=== PATIENT | male | born 1940 | race Caucasian/White ===

== ENCOUNTER 2019-01-19 08:05 | Observation (INO) ==
[~2019-01-19 08:05] MED LIST: CEFAZOLIN 1000MG 1,000 MG/7.5 ML SYR IV SCH; CLINDAMYCIN 600 MG/54 ML BAG IV SCH; LR 15ML/HR IV SCH
[2019-01-19] MEDS ORDERED: BACITRACIN INJ 50,000 UNIT VIAL ONE (10:01)
[2019-01-19] MEDS ORDERED: LIDOCAINE HCL 1% 20 ML VIAL ONE (10:01)
[2019-01-19] MEDS ORDERED: BUPIVACAINE 0.25% 30 ML VIAL ONE (10:01)
--- NOTE | 2019-01-19 10:05 | Pre Anesthesia Assessment ---
Date of Service January 19, 2019 Pre Sedation Assessment Vital Signs Temp Pulse Resp BP Pulse Ox 01/19/19 08:25 36.4 C L 65 18 161/99 H 96 Pre-Sedation Airway Assessment Smoking Status: Never smoker Hx Sleep Apnea: No Short, Thick Neck: No Thyromental Distance: > or= 3.5 Finger Breadths Oral Cavity: + WNL Mallampati Class: IV ASA: ASA3 NPO Status Date of Last Intake of Fluids: 01/19/19 Time of Last Intake of Fluids: 07:30 Date of Last Intake of Solid Food: 01/18/19 Time of Last Intake of Solid Foods: 21:45 Notes The planned sedation has been discussed with the patient. Informed Consent was obtained. I have identified the patient, determined the appropriateness of s edation and have assessed the patient immediately prior to the procedure. All medicine(s) and interventions are by my order.
--- NOTE | 2019-01-19 10:11 | History & Physical Report ---
Date of Service January 19, 2019 Assessment & Plan (1) SSS (sick sinus syndrome): History of Present Illness Chief Complaint: +fatigue and +SINCLAIR Primary Care Provider: Mirella العراقي Allergies Allergy/AdvReac Type Severity Reaction Status Date / Time Penicillins Allergy Anaphylaxis Verified 01/19/19 08:40 Home Medications Home Medications Medication Instructions Recorded Confirmed Type Aspirin Low Dose 81 mg DAILY 01/19/19 01/19/19 History Past Med/Surg History Family History Mother No problems noted. 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
[2019-01-19] MEDS ORDERED: MIDAZOLAM HCL 5 MG/ML 1 ML VIAL ONE (10:21)
[2019-01-19] MEDS ORDERED: fentaNYL citrate 100 MCG/2 ML VIAL ONE ×2 (10:21→10:43)
--- NOTE | 2019-01-19 11:25 | Post Anesthesia Assessment ---
Date of Service January 19, 2019 Post Sedation Assessment Vital Signs Temp Pulse Resp BP Pulse Ox 01/19/19 08:25 36.4 C L 65 18 161/99 H 96 Recovery Score Activity: Moves 4 extremities Respiration: Deep Breath/Cough Circulation: +/-20% PreAnes Value Consciousness: Fully Awake Oxygen Saturation: > 92% On Room Air Discharge Sedation Level of Care: Fast Track Phase II Post Sedation Plan On clinical assessment, the patient appears to have tolerated the sedation without complications. Patient is recovering as anticipated. Patient will continue to be monitored by nursing and may be discharged when sedation discharge criteria are met per below protocol. Upon Completions of procedure and additional 15 minutes continue every 5 minute vital signs and the P.A.R. score; then discharge to a Phase I or Fast Track to Phase II per the following guidelines: * Discharge Patient to appropriate Phase II area if PAR is 8 or greater or return to pre- procedure baseline. The post - procedure orders will be as directed. * If PAR score is less than 8 or not return to pre-procedure baseline then patient will follow Phase I monitoring till PAR is reached for Phase II. The Phase I may be done in procedure room or may call to secure a Phase I area. * If naloxone or flumazenil are used for reversal, hold in Phase I for continued monitoring from when last reversal dose was given for a minimum of 60 minutes or longer pending the nurse and/or physician discretion of patient condition before discharge to Phase II. Please call the Sedation Physician to re-evaluate and complete post-note for discharge to Phase II area. Do NOT discharge from procedure sedation or Phase 1 until post- sedation evaluation note is complete by procedure /sedation MD Sedation Discharge Instructions to be given to the patient at discharge to home.
[2019-01-19] MEDS ORDERED: OXYCODONE/ACETAMINOPHEN 5mg/325mg TAB PO PRN (11:26)
--- NOTE | 2019-01-19 11:26 | Operative Report ---
Post Operative Report Pre & Post Diagnosis sss Operation Date: 01/19/19 10:00 <No data on this case meets the specified criteria> Procedure Operation Date: 01/19/19 10:00 Actual Procedures p Pacer with A/V Leads (Dual) - Elvie Israel DO s Venogram, Unilateral - Elvie Israel DO Surgeon Elvie Israel, Scientific Diver none Estimated Blood Loss 10 Findings Consistent with Post-Op Diagnosis Specimens nones Description of Procedure see official report I attest to the content of the Intraoperative Record and any orders documented therein. Any exceptions are noted below.
--- NOTE | 2019-01-19 11:33 | Discharge Summary ---
Date of Service January 19, 2019 Admission HPI Per Admitting Provider pt with SSS admitted for ppm Admission Exam Per Admitting Provider aaox3, NAD NC/AT, EOMI Supple No JVD Nrl S1/S2, No murmur CTA b/l no w/r/r soft nt/nd no LE edema b/l skin intact no focal deficits Principal Diagnosis SSS s/p dual chamber pacemaker Discharge Exam aaox3, NAD NC/AT, EOMI Supple No JVD Nrl S1/S2, No murmur CTA b/l no w/r/r soft nt/nd no LE edema b/l skin intact no focal deficits left pectoral incision intact, no hematoma mild ecchymosis ENMT Mallampati Class: IV Discharge Data Allergies Allergy/AdvReac Type Severity Reaction Status Date / Time Penicillins Allergy Anaphylaxis Verified 01/19/19 08:40 Procedures Performed Operation Date: 01/19/19 10:00 Actual Procedures p Pacer with A/V Leads (Dual) - Elvie Israel DO s Venogram, Unilateral - Elvie Israel DO Ordered Studies CXR: No PTX, leads in position ECG: AP-VS Pacemaker Interrogation: Normal function Lead testing WNL 01/19/19 07:00 EP Lab Images for PACS ONCE Hospital Course (1) SSS (sick sinus syndrome): s/p dual chamber ppm placement lead placement confirmed functioning appropriately outpatient f/u as scheduled will d/c Total Time Total Time Spent Total Time Spent (In Minutes): 30 Total Time Includes: Discharge Planning, Medication Reconciliation and Other Discharge Plan Discharge Items Patient Disposition: Home - Self-Care Reason For Visit: S/P PACER INSERTION Discharge Diagnosis: sss s/p dual chamber ppm Condition: Good Discharge Goals: Improve function Activity: As commented below Activity Comment: do not lift the left elbow over the left shoulder for 1 month Lifting: No more than 10 pounds Lifting Comment: do not lift more than 10 pounds with the left arm for 2 weeks Bathing: Keep incision dry Bathing Comment: can shower sunday 01/21 let water run over the incision do not scrub it Sexual Activity: After two weeks Driving/Machine Use: Resume 1 day after discharge Non-emergency contact: Primary Care Provider Call non-emergency contact if: you have any medication questions and your symptoms worsen Follow-up/Referrals: Mirella Castaneda [Primary Care Provider] - Diet: Regular Addtl Provider Instructions: device and wound check in [facility] next week if you notice any swelling call Dr. Israel's office immediately Prescriptions: New metoprolol succinate 25 mg Tablet Extended Release 24 Hr 25 mg PO QAM Qty: 30 RF: 0 Continued Aspirin Low Dose 81 mg 81 mg DAILY RF: 0 Stand-Alone Forms: [facility]/Other Patient Handouts: Pacemaker, Implantation Pacemaker Dc Discharge Orders: Discharge Order (Routine); Ordered 01/20/19 Ordered By: Murray Henderson Admission Data Admit Date/Time: 01/19/19 11:02 Attending Provider: Elvie Israel Admit Provider: Elvie Israel Primary Care Provider: Mirella Castaneda Service: Telemetry Other Interventions: Discharge Summary Assessment (RN) Last Done: 01/20/19 10:12 DC Date/Time DO NOT enter until pt leaves facility: 01/20/19 11:06
[2019-01-19] MEDS: METOPROLOL SUCC 25MG EXT REL TAB PO SCH (12:45)
[2019-01-19] MEDS: ACETAMINOPHEN 325 MG TAB PO PRN ×2 (15:52→23:14)
--- NOTE | 2019-01-20 07:26 | XRay Report ---
XR chest 2V routine HISTORY: 78 years-old Male post implant status post placement of a left subclavian pacer COMPARISON: None available TECHNIQUE: PA and lateral views of the chest FINDINGS: Limited lateral view secondary to positioning of the patient's upper extremities. Cardiomediastinal a nd hilar silhouettes are within normal limits. Status post placement of a left subclavian pacer with leads overlying the expected locations of the right atrium and right ventricle. No postprocedural pne umothorax. Mild right hemidiaphragmatic elevation. No large pleural effusion, lobar airspace consolid ation or overt pulmonary edema. Degenerative changes of the shoulders and spine. IMPRESSION: Status post placement of a left subclavian pacer without postprocedural pneumothorax iden tified. The above report was generated using voice recognition software. It may contain grammatical, syntax o r spelling errors. Electronically signed by: Julio Cesar Berry M.D. 01/20/2019 7:25 AM
[2019-01-20] MEDS: METOPROLOL SUCC 25MG EXT REL TAB PO SCH (08:28)
[2019-01-20] MEDS ORDERED: ASPIRIN 81 MG ECTAB PO SCH (09:00)
--- NOTE | 2019-01-20 09:50 | Cardiology Progress Note ---
Date of Service January 20, 2019 Assessment & Plan (1) SSS (sick sinus syndrome): s/p dual chamber ppm placement lead placement confirmed functioning appropriately outpatient f/u as scheduled will d/c Subjective Pt seen and examined, cherie joshua. States that he feels well. Slight soreness at pocket site but controlled. Denies cp, sob, palpitations, lightheadedness or dizziness. tele reviewed: sinus with occasional atrial pacing Review of Systems Review of Systems: All systems reviewed & are unremarkable except as noted in HPI & below Physical Exam Physical Exam: General: Awake, alert and oriented x 3. No acute distress. HEENT: Normocephalic, atraumatic. Pupils equal, round and reactive to light and accommodation. Extraocular muscles are intact. Anicteric sclera. Moist mucous membranes. Neck: No JVD. No bruit. Cardiovascular: Regular. Positive S-4. Normal S-1 and S-2. No S-3. No murmurs or rubs. Pulmonary: Clear to auscultation B/L. No rales, rhonchi or wheezing Abdomen: Bowel sounds x 4, soft. No rebound, guarding or tenderness. No organomegaly. Extremities: No clubbing, cyanosis or edema. +2 pedal pulses bilaterally. Skin: Warm and dry. Results & Data Vital Signs (Past 12 Hours) Vital Signs Temp Pulse Pulse Resp BP Pulse Ox 01/20/19 08:27 36.9 C 60 16 123/63 93 01/20/19 03:08 36.6 C 61 16 114/76 92 01/19/19 23:15 61 01/19/19 23:03 36.8 C 60 16 125/77 97
--- NOTE | 2019-02-02 00:57 | Operative Report ---
DATE OF OPERATION: 01/19/2019 DATE OF PROCEDURE: 01/19/2019 PREOPERATIVE DIAGNOSIS: Sick sinus syndrome. POSTOPERATIVE DIAGNOSIS: Sick sinus syndrome. PROCEDURE: Dual chamber responsive permanent pacemaker under fluoroscopic guidance with a peripheral venogram. SURGEON: Elvie Israel DO. MRI TECH: None. ANESTHESIA: Monitored conscious sedation administered under my supervision by Cynthia Phipps, start time 10:30 and end time 11:22. A total of 5 mg Versed, 125 mcg of fentanyl. INTRAVENOUS FLUIDS: 61 mL. ANTIBIOTICS: Clindamycin 600 mg. IV CONTRAST: 10 mL. URINE OUTPUT: Not applicable. SPECIMENS: None. FINDINGS: See below. DRAINS: None. COMPLICATIONS: None. CONDITION: Stable. BLOOD LOSS: 20 mL. INDICATIONS: This is a 78-year-old gentleman with past medical history for prior tobacco use, PVCs, PAT, PFO, negative nuclear stress test in November of 2018, incomplete right bundle branch block and polycythemia vera. He has been having evidence of sick sinus syndrome, becoming more symptomatic and recommended dual chamber pacemaker. CONSENT: Consent was obtained prior to the patient going into the electrophysiology lab. The patient was informed of risks, benefits, alternative procedures include but not limited to sudden cardiac , cardiac arrhythmias, cerebrovascular accident, myocardial infarction, injury to the blood vessels, chamber of the heart, lung, bleeding, and infection. The patient understood these risks and agreed to the procedure as planned. Informed consent was obtained. DESCRIPTION OF PROCEDURE: The patient was brought into the electrophysiology lab in fasting state. He was connected to continuous rag baler. A timeout was performed to ensure patient identity and procedure correctly. The patient was prepped and draped over the left infraclavicular space in normal surgical standard fashion. Monitored conscious sedation was given throughout the procedure for patient's comfort level. [place] precautions were maintained throughout the procedure. A 10 mL of 1% lidocaine, bupivacaine mixture were given in the left deltopectoral groove. Incision was made in the left deltopectoral groove. Blunt dissection performed down to identify cephalic vein. Cephalic vein is not identified, so a peripheral venogram using 10 mL of contrast diluted in 10 mL of saline to identify the axillary vein was performed. Venous access was obtained through a needle stick through the axillary vein without any complications. A guidewire was inserted without any resistance. An 8-Liberian sheath was inserted over the guidewire without any resistance. His dilator was removed and a second guidewire was inserted through the 8-Liberian sheath to allow for retained venous access. Sheath was removed, flushed, dilator reinserted over it and has reinserted along the guidewire. The guidewire and dilator removed and the right ventricular lead was advanced into right ventricle and positioned into right ventricular apex under fluoroscopic guidance. There was adequate pacing and sensing thresholds and no diaphragmatic stimulation with high output pacing. The 8-Liberian sheath was peeled away and lead was fixated to pectoralis muscle using 0 silk suture. A second 8-Liberian sheath was inserted over the retained guidewire without any resistance. The right atrial lead was then advanced into right atrium and positioned into atrial appendage under fluoroscopic guidance. There was adequate pacing and sensing thresholds and no diaphragmatic stimulation with high output pacing. The 8-Liberian sheath was peeled away and lead was fixated to pectoralis muscle using 0 silk suture. A pacemaker pocket was created using blunt dissection over the pectoralis muscle within the pectoral fascia. Pocket was flushed with copious amounts of bacitracin saline wash and inspected for hemostasis. The pulse generator was then attached to the leads, making sure that the pins were in appropriate position, passed set screw and set screws were all tightened. The pulse generator was then placed in the pocket, making sure that the leads were lying flat in device. A stay stitch using 0 silk suture was used to secure the left pectoralis muscle. The incision was then closed in 3-layer fashion with 2-0 Vicryl interrupted suture followed by 3-0 Vicryl interrupted suture followed by 4-0 Monocryl running stitch. Dermabond was applied. EQUIPMENT: 1. Pulse generator is a [employer] Mary XT DR JULITEA Aceves [id number], serial number [id number]. 2. Right atrial lead is a Medtronic 5076-52 cm, serial number [id number]. 3. Right ventricular lead is a Medtronic 5076-58 cm, serial number [id number]. INTRAOPERATIVE TESTIN. Right atrial lead: P waves 1.9 millivolts, impedance 684 ohms, threshold 0.8 volts at 0.4 milliamps. 2. Right ventricular lead: R-wave 11.1 millivolts, impedance 608 ohms, threshold 0.54 volts at 0.4 milliamps. FINAL MEASUREMENTS THROUGH THE DEVICE: 1. Right atrial lead: P waves 1.3 millivolts, impedance 772 ohms, threshold 0.5 volts at 0.4 milliseconds. 2. Right ventricular lead: R waves 8.8 millivolts, impedance 627 ohms, threshold 0.5 volts at 0.4 milliseconds. FINAL PARAMETERS: MVP-R 60/130. Right atrial amplitude 3.5 volts, pulse width 0.4 milliseconds, sensitivity 0.3 millivolts. Right ventricular amplitude 3.5 volts, pulse width 0.4 milliseconds, sensitivity 1.2 millivolts. IMPRESSION: Successful implantation of a dual chamber rate responsive permanent pacemaker under fluoroscopic guidance along with peripheral venogram secondary to sick sinus syndrome. PLAN: Monitor patient overnight, 12-lead ECG, chest x-ray. He is not allowed to lift left elbow or left shoulder for 1 month. He cannot lift more than 10 pounds with the left arm for 2 weeks. He can shower in 2 days, let water run over the incision, do not scrub it. He will follow up in our [place] office for device and wound check in 1 week's time and we will start him on metoprolol. I attest to the content of the Intraoperative Record and any orders documented therein. Any exceptions are noted below. DONNELL
== END 2019-01-20 11:06 | disposition home or self-care (01) ==
LOC: ASU 08:05 → 2E 08:05